=== PATIENT | male | born 1935 | race Caucasian/White ===

== ENCOUNTER → 2016-05-08 | Outpatient (CLI) | payer OTHER ==
[2016-05-08 16:45] LABS: PROTHROMBIN TIME 25.1 secs (9.7-11.4)
== END ==
LOC: LAB 16:11
PROVIDERS: ATTEND Nurse Practitioner Family
DX: Z51.81 Encounter for therapeutic drug level monitoring (principal); Z79.01 Long term (current) use of anticoagulants
CPT/HCPCS: 36415; 85610

== ENCOUNTER → 2016-05-30 | Outpatient (CLI) | payer OTHER ==
[2016-05-30 12:02] LABS: PROTHROMBIN TIME 30.3 secs (9.7-11.4)
== END ==
LOC: LAB 11:32
PROVIDERS: ATTEND Nurse Practitioner Family
DX: Z51.81 Encounter for therapeutic drug level monitoring (principal); Z79.01 Long term (current) use of anticoagulants
CPT/HCPCS: 36415; 85610

== ENCOUNTER → 2016-07-11 | Outpatient (CLI) | payer OTHER | LOC: LAB 13:55 | PROVIDERS: ATTEND Nurse Practitioner Family | DX: I48.91 Unspecified atrial fibrillation (principal) | CPT/HCPCS: 36415; 85610 ==

== ENCOUNTER → 2016-07-26 | Outpatient (CLI) | payer OTHER | LOC: LAB 07:55 | PROVIDERS: ATTEND Nurse Practitioner Family | DX: I48.91 Unspecified atrial fibrillation (principal) | CPT/HCPCS: 36415; 85610 ==

== ENCOUNTER → 2016-08-09 | Outpatient (CLI) | payer OTHER | LOC: LAB 07:32 | PROVIDERS: ATTEND Nurse Practitioner Acute Care | DX: I48.91 Unspecified atrial fibrillation (principal) | CPT/HCPCS: 36415; 85610 ==

== ENCOUNTER → 2016-08-30 | Outpatient (CLI) | payer OTHER | LOC: LAB 07:23 | PROVIDERS: ATTEND Nurse Practitioner Acute Care | DX: I48.91 Unspecified atrial fibrillation (principal) | CPT/HCPCS: 36415; 85610 ==

== ENCOUNTER → 2016-09-20 | Outpatient (CLI) | payer OTHER | LOC: LAB 07:37 | PROVIDERS: ATTEND Nurse Practitioner Acute Care | DX: I48.91 Unspecified atrial fibrillation (principal) | CPT/HCPCS: 36415; 85610 ==

== ENCOUNTER → 2016-10-18 | Outpatient (CLI) | payer OTHER | LOC: LAB 07:30 | PROVIDERS: ATTEND Nurse Practitioner Acute Care | DX: I48.91 Unspecified atrial fibrillation (principal) | CPT/HCPCS: 36415; 85610 ==

== ENCOUNTER → 2016-10-24 | Outpatient (CLI) | payer OTHER | LOC: US 14:12 | PROVIDERS: ATTEND Nurse Practitioner Acute Care | DX: I50.9 Heart failure, unspecified (principal); I10 Essential (primary) hypertension; R01.1 Cardiac murmur, unspecified; I49.9 Cardiac arrhythmia, unspecified | CPT/HCPCS: 93306 ==

== ENCOUNTER → 2016-11-22 | Outpatient (CLI) | payer OTHER | LOC: LAB 08:01 | PROVIDERS: ATTEND Nurse Practitioner Acute Care | DX: I48.91 Unspecified atrial fibrillation (principal) | CPT/HCPCS: 36415; 85610 ==